=== PATIENT | female | born 1960 | race Caucasian/White ===

== ENCOUNTER 2018-08-24 09:08 | Outpatient (CLI) | payer OTHER, SELFPAY | END 2018-08-24 09:28 | PROVIDERS: PCP Family Medicine; Visit Provider Surgery | DX: R07.89 Other chest pain (principal); Z01.810 Encounter for preprocedural cardiovascular examination | CPT/HCPCS: 93005; 93010 ==

== ENCOUNTER 2018-09-04 06:17 | Day surgery (SDC) | payer OTHER, SELFPAY ==
[2018-08-24 09:28] VITALS: BP 128/75; PULSE 73; RESP 18; TEMP 36.7; O2SAT 97
[2018-09-04 06:38] VITALS: BP 127/82; PULSE 68; RESP 18; TEMP 36; O2SAT 96
--- NOTE | 2018-09-04 06:41 | W.PM.ENDDOP ---
Date of service: 09/04/18 Time of Service: 07:28 Endoscopy Report DATE OF PROCEDURE: 09/04/18 PRE-OP DIAGNOSIS: Dysphagia/ Hx of Jessica's/ Change in bowel habits POST-OP DIAGNOSIS: other (Gastritis, esophagitis, burr-diverticulosis) PROCEDURE: 1. EGD with biopsies 2. Colonoscopy SURGEON: Tess Batista ANESTHESIA: other (General/ ASA 3/Kathleen Quezada, NIB ADJUSTER) ESTIMATED BLOOD LOSS: 3 PATHOLOGY: other (Antrum bx, GE junction bx) COMPLICATIONS: None DISPOSITION: same day INDICATIONS: Mrs. Arora is a pleasant 57 year old female with new onset dysphagia, hx of Jessica's and changes in bowel habits who was seen in the office for an EGD and Colonoscopy. Risks, benefits and complications have been reviewed. Complications include but are not limited to bleeding, pain, perforation, missed small lesion/polyp, sore throat, aspiration and adverse reaction to the medications. Questions were entertained and answered to their satisfaction and they wished to proceed. No guarantees were given or implied. PREP: Miralax/Dulcolax PROCEDURE START TIME: 07:30 PROCEDURE END TIME: 08:17 COLONOSCOPY RETRACTION TIME: 12 minutes FINDINGS: Inflammation of the stomach and esophagus Burr-diverticulosis Difficult EGD/[place] due to patient morbid obesity and SANTY. PROCEDURE DESCRIPTION: After informed consent was obtained the patient was take to the procedure room and placed in a supine position. Monitors were applied and a time out was done. The patients name, date of , procedure type, allergies to medications and metal in their body was reviewed. A bite block was placed and the patient was sedated. Once sedated and comfortable the gastroscope was advanced through the oropharynx which was grossly normal into the esophagus. The proximal and mid-esophagus were normal. In the distal esophagus there was inflammation noted. The scope was advanced into the stomach and through the pylorus into the 3rd portion of the duodenum. The duodenum was noted to have mild inflammation in the duodenal bulb. The scope was retracted back into the stomach and biopsies were done to rule out H. pylori. There were no ulcers. The scope was retro-flexed. The cardia and fundus were noted to be normal. There was no hiatal hernia noted. The scope was retracted back into the esophagus and biopsies were done of the GE junction to rule out Jessica's. The Z line was irregular. The GE junction was at 38 cm. While the patient was still sedated they were placed in a left decubitous position. A rectal exam was done. External exam was normal. Internal exam revealed a normal sphincter tone and no palpable masses. The scope was then introduced and retro-flexed. No internal hemorrhoids were identified. There were no polyps and no masses in the rectum.The scope was then advanced to the cecum with a lot of difficulty due to the patients morbid obesity and hx of obstructive sleep apnea. Due to the patients size it was also difficult to advance the scope into the cecum. The TI and appendiceal orifice were identified. The prep was good. The scope was then slowly retracted over 12 minutes back into the rectum. Burr-diverticulosis was note. There were no polyps identified. The scope was removed and the patient was woken up and taken back to Same day surgery in stable condition. The patient tolerated the procedure well and there were no immediate complications. Follow up: 10 year for her next colonoscopy. Due to the difficulty with her airway I recommend that she [place] [facility] [place] [facility], unless she looses a lot of weight. This will be discussed with the patient as well. Follow up with her PCP in 2-3 weeks. I will call her with the results of her EGD and Colonoscopy. Will add Ranitidine 300 mg in the evening.
--- NOTE | 2018-09-04 06:46 | ENDO_ITS ---
Date of service: 09/04/18 Time of Service: 07:28 Endoscopy Report DATE OF PROCEDURE: 09/04/18 PRE-OP DIAGNOSIS: Dysphagia/ Hx of Jessica's/ Change in bowel habits POST-OP DIAGNOSIS: other (Gastritis, esophagitis, burr-diverticulosis) PROCEDURE: 1. EGD with biopsies 2. Colonoscopy SURGEON: Tess Batista ANESTHESIA: other (General/ ASA 3/Kathleen Quezada, STUDIO CAMERA OPERATOR) ESTIMATED BLOOD LOSS: 3 PATHOLOGY: other (Antrum bx, GE junction bx) COMPLICATIONS: None DISPOSITION: same day INDICATIONS: Mrs. Arora is a pleasant 57 year old female with new onset dysphagia, hx of Jessica's and changes in bowel habits who was seen in the office for an EGD and Colonoscopy. Risks, benefits and complications have been reviewed. Complications include but are not limited to bleeding, pain, perforation, missed small lesion/polyp, sore throat, aspiration and adverse reaction to the medications. Questions were entertained and answered to their satisfaction and they wished to proceed. No guarantees were given or implied. PREP: Miralax/Dulcolax PROCEDURE START TIME: 07:30 PROCEDURE END TIME: 08:17 COLONOSCOPY RETRACTION TIME: 12 minutes FINDINGS: Inflammation of the stomach and esophagus Burr-diverticulosis Difficult EGD/[place] due to patient morbid obesity and SANTY. PROCEDURE DESCRIPTION: After informed consent was obtained the patient was take to the procedure room and placed in a supine position. Monitors were applied and a time out was done. The patients name, date of , procedure type, allergies to medications and metal in their body was reviewed. A bite block was placed and the patient was sedated. Once sedated and comfortable the gastroscope was advanced through the oropharynx which was grossly normal into the esophagus. The proximal and mid- esophagus were normal. In the distal esophagus there was inflammation noted. The scope was advanced into the stomach and through the pylorus into the 3rd portion of the duodenum. The duodenum was noted to have mild inflammation in the duodenal bulb. The scope was retracted back into the stomach and biopsies were done to rule out H. pylori. There were no ulcers. The scope was retro- flexed. The cardia and fundus were noted to be normal. There was no hiatal hernia noted. The scope was retracted back into the esophagus and biopsies were done of the GE junction to rule out Jessica's. The Z line was irregular. The GE junction was at 38 cm. While the patient was still sedated they were placed in a left decubitous position. A rectal exam was done. External exam was normal. Internal exam revealed a normal sphincter tone and no palpable masses. The scope was then introduced and retro-flexed. No internal hemorrhoids were identified. There were no polyps and no masses in the rectum.The scope was then advanced to the cecum with a lot of difficulty due to the patients morbid obesity and hx of obstructive sleep apnea. Due to the patients size it was also difficult to advance the scope into the cecum. The TI and appendiceal orifice were identified. The prep was good. The scope was then slowly retracted over 12 minutes back into the rectum. Burr-diverticulosis was note. There were no polyps identified. The scope was removed and the patient was woken up and taken back to Same day surgery in stable condition. The patient tolerated the procedure well and there were no immediate complications. Follow up: 10 year for her next colonoscopy. Due to the difficulty with her airway I recommend that she [place] [facility] [place] [facility], unless she looses a lot of weight. This will be discussed with the patient as well. Follow up with her PCP in 2-3 weeks. I will call her with the results of her EGD and Colonoscopy. Will add Ranitidine 300 mg in the evening.
--- NOTE | 2018-09-04 06:46 | W.PM.DSUDISC ---
Discharge Plan Disposition Patient Disposition: HOME Condition: Good Discharge Details Reason For Visit: Colonoscopy and EGD Attending Provider: Tess Batista Primary Care Provider: Mario Alberto Rowland Home Meds and New Rx's Prescriptions: New ranitidine HCl 300 mg capsule 300 mg PO QHS Qty: 30 RF: 2 Continued [id number] [Nqzlgk-Zlnnd-SVO (with antiox)] 500-500-66.7 mg tablet 4 tab PO BID RF: 0 nystatin 100,000 unit/gram powder 1 applic TP TID Qty: 60 RF: 0 omeprazole 40 mg capsule,delayed release(DR/EC) 40 mg PO DAILY Qty: 30 RF: 0 mupirocin 2 % ointment 1 applic Topical BID 7 Days Qty: 22 RF: 1 montelukast [Singulair] 10 mg tablet 10 mg PO DAILY Qty: 90 RF: 3 epinephrine [EpiPen 2-Behzad] 0.3 mg/0.3 mL auto-injector 0.3 mg IM as directed Qty: 1 RF: 3 flu vacc quad 2018-19(6mos up) 60 mcg (15 mcg x 4)/0.5 mL suspension 0.5 ml IM ONCE Qty: 0.5 RF: 0 diphenhydramine HCl [Benadryl] 25 MG capsule 4 cap PO HS RF: 0 loratadine [Claritin] 10 MG tablet 1 tab PO BID Qty: 180 RF: 4 Co [id number]-35-[id number] E-Fish Oil 1 EACH capsule 3 ea PO BID RF: 0 acyclovir 400 mg tablet 400 mg PO TID PRN Qty: 30 RF: 1 Ascorbic Acid [Vitamin C] 500 MG capsule 500 mg PO DAILY RF: 0 vitamin B complex 1 EACH capsule 1 ea PO DAILY RF: 0 Discontinued polyethylene glycol 3350 17 gram powder in packet 255 g PO DAILY Qty: 15 RF: 0 bisacodyl [Dulcolax (bisacodyl)] 5 mg tablet,delayed release (DR/EC) 5 mg PO ONCE Qty: 4 RF: 0 Discharge Instructions Instructions: Colonoscopy (DC), Upper Endoscopy (DC), Diet for Stomach Ulcers and Gastritis (GEN), Gastritis (DC), Esophagitis (DC), Diverticulosis (DC) Additional Instructions: Findings: inflammation of the stomach and esophagus Diverticulosis Follow up: 10 years for your next colonoscopy F/U with PCP in 2-3 weeks Please call if you develop: fevers >101.5 Nausea or Vomiting Abdominal pain that is not transient DAY SURGERY UNIT POST COLONOSCOPY INSTRUCTIONS 1. Because there will be medication in your system for the next 24 hours, you may feel a little sleepy. Your coordination will be affected. Therefore: a. Do not drive or operate dangerous equipment for 24 hours. b. Do not drink alcohol beverages for 24 hours (not even beer). c. Plan to go home and rest for the day. 2. Generally there are no restrictions on your activity after a day or so has gone by, but you may feel a bit fatigued for a few days. 3 After you arrive home you may have a light meal and return to a normal diet as you can tolerate it without feeling sick to your stomach. 4. After surgery, you may feel pain or discomfort. This should be only transient, but if it persists please contact your doctor. 5. If there are any questions regarding the findings of your procedure, please feel free to contact your doctor. 6. If you are unable to contact your doctor with a problem, contact the hospital at [phone]. 7. Continue all your regular medications unless directed otherwise. I understand the above instructions and have no questions. Signature of Patient or Responsible Adult Escort Date/Time Name of Responsible Adult Escort Signature of Nurse Date/Time Referrals: Mario Alberto Rowland [Primary Care Provider] - (2-3 weeks) Activity:: Activity as Tolerated Diet:: low acid Discharge Orders Discharge Orders: Discharge Order (Routine); Ordered 09/04/18 Ordered By: Tess Batista DS: Diagnosis Discharge Diagnosis (1) S/P colonoscopy: Status: Acute (2) H/O esophagogastroduodenoscopy: Status: Chronic (3) Diverticulosis: Status: Acute (4) Gastritis: Status: Acute
[2018-09-04] MEDS: Lactated Ringers 1,000 ML 80 ML IV (06:58)
--- NOTE | 2018-09-04 07:30 | STOM_PTH ---
PATIENT: Demetra Arora LOC: [facility] U#:[id number] AGE/SX: 57/F ROOM: RE09/04/[address]: Tess Batista MD : 1960 BED: DIS: 09/04/2018 SPEC #: [id number] RECD: 09/04/18 12:49 STATUS: CATHY RE #: [id number] THIERNO: 09/04/18 07:[address]: Tess Batista DEPT: Surgical Specimen RECD BY: Iwona Mesa ENTERED: 09/04/18 12:51 SP TYPE: STOMACH OTHR DR: Mario Alberto Rowland MD Tissues: 1 - STOMACH BIOPSY 2 - ESOPHAGUS BIOPSY Procedures: GROSS AND MICRO LEVEL 4 Comments: [id number]
[2018-09-04 08:58] VITALS: BP 124/74; PULSE 59; RESP 18; TEMP 35.7; O2SAT 99
== END 2018-09-04 09:14 | disposition home or self-care (01) ==
PROVIDERS: PCP Family Medicine; Visit Provider Surgery
PROC: (CPT 43239; principal; 2018-09-04 07:30)
DX: K22.711 Barrett's esophagus with high grade dysplasia (principal); K31.89 Other diseases of stomach and duodenum; R13.10 Dysphagia, unspecified; R19.4 Change in bowel habit; K57.30 Diverticulosis of large intestine without perforation or abscess without bleeding; G47.33 Obstructive sleep apnea (adult) (pediatric)
CPT/HCPCS: 43239; 45378; 88305

== ENCOUNTER 2018-09-14 07:10 | Outpatient (CLI) | payer OTHER, SELFPAY ==
[2018-09-14 07:41] LABS: Abs Immature Grans 0.01 k/cumm (0.0-0.09); Absolute Basophil Count 0.03 k/cumm (0.0-0.2); Absolute Lymphocyte Count 1.21 k/cumm (1.2-3.4); Absolute Monocyte Count 0.51 k/cumm (0.11-0.7); Absolute Neutrophil Count 3.56 k/cumm (1.2-6.7); Basophils % 0.5; Eosinophils % 3.6; HCT 39.2 % (36.0-46.0); HGB 12.6 g/dL (12.0-15.5); Immature Grans % 0.2; Lymphocytes % 21.9; Mean Corp. HGB Concentration 32.1 g/dL (32.0-36.0); Mean Corpuscular Hemoglobin 29.7 pg (27.0-33.0); Mean Corpuscular Volume 92.5 fL (80-95); Mean Platelet Volume 10.6 fL (8.0-11.0); Monocytes % 9.2; Neutrophils % 64.6; Platelet Count 194 x1000/uL (130-400); RBC 4.24 m/cumm (4.00-5.20); RBC Distribution Width 13.6 % (11.7-14.6); White Blood Cell Count 5.52 k/cumm (4.4-10.8)
[2018-09-14 08:16] LABS: Hemoglobin A1C 5.6 % (4.5-6.2)
[2018-09-14 08:54] LABS: ALT 23 U/L (12-78); AST 14 U/L (15-37); Albumin 3.4 g/dL (3.4-5.0); Alkaline Phosphatase 88 U/L (46-116); Anion Gap 9.7 mmol/L (3-11); BUN 15 mg/dL (7-18); Bilirubin, Total 0.3 mg/dL (0.2-1.0); CO2 27.3 mmol/L (21.0-32.0); CREATININE 0.84 mg/dL (0.55-1.02); Calcium 9.3 mg/dL (8.5-10.1); Chloride 105 mmol/L (98-107); Cholesterol 193 mg/dL (50-200); Glucose 95 mg/dL (70-100); HDL Cholesterol 61 mg/dL (40-60); LDL CHOLESTEROL 106 mg/dL (<100); Potassium 4.2 mmol/L (3.5-5.1); Sodium 142 mmol/L (136-145); TSH (W/Ref FT4) 5.41 uIU/mL (0.358-3.74); Total Protein 6.7 g/dL (6.4-8.2); Triglyceride 139 mg/dL (30-150)
== END 2018-09-14 07:30 ==
PROVIDERS: PCP Family Medicine; Visit Provider Family Medicine
DX: Z00.00 Encounter for general adult medical examination without abnormal findings (principal); R00.2 Palpitations; K29.70 Gastritis, unspecified, without bleeding; R73.9 Hyperglycemia, unspecified
CPT/HCPCS: 36415; 80053; 80061; 83721; 85027; 83036; 84439; 84443; 85025

== ENCOUNTER 2019-06-11 14:33 | Outpatient (REF) | payer OTHER, SELFPAY ==
--- NOTE | 2019-06-11 10:00 | PAPFT_PTH ---
PATIENT: Demetra Arora LOC: [facility] U#:[id number] AGE/SX: 58/F ROOM: RE06/11/[address]: Mario Alberto Rowland MD : 1960 BED: DIS: 06/11/2019 SPEC #: [id number] RECD: 06/11/19 17:45 STATUS: CATHY RENik #: [id number] THIERNO: 06/11/19 10:[address]: Mario Alberto Rowland DEPT: [facility] Cytology RECD BY: Iwona Mesa Tissues: 1 - CX/ENDOCX FOR PAP SMEARS Procedures: PAP THIN PREP/[facility] Screening Comments: [id number] (ZAN/MARCELA)
[2019-06-12 15:45] LABS: Chlamydia Result Negative (Negative); GC Result Negative (Negative)
== END 2019-06-11 14:53 ==
LOC: LBN 14:33
PROVIDERS: PCP Family Medicine; Visit Provider Family Medicine
DX: Z12.4 Encounter for screening for malignant neoplasm of cervix (principal); Z11.3 Encounter for screening for infections with a predominantly sexual mode of transmission
CPT/HCPCS: 87491; 87591; 88142

== ENCOUNTER 2019-07-10 01:28 | Outpatient (CLI) | payer OTHER, SELFPAY ==
--- NOTE | 2019-07-10 07:28 | DI.MAMMO_ITS ---
EXAM: MG MAMMO SCREENING CLINICAL HISTORY: SCREENING, Z12.31. TECHNIQUE: Bilateral full field digital CC and MLO mammographic images were obtained with 3D tomosyn thesis and utilizing computer aided detection (CAD). COMPARISON: Available for comparison. FINDINGS: Masses/Architectural Distortion: None seen. Microcalcifications: No suspicious pleomorphic-type are seen. Skin Thickening/Nipple Retraction: None. IMPRESSION: 1. No significant interval change with no specific features of malignancy noted. 2. Unless there is more urgent need, screening mammography is recommended, as per [employer] guidelines. ACR BI-RAD Category- 1 Negative Breast Density - Category B - Scattered areas of fibroglandular density A negative radiographic report should not delay biopsy if a dominant or clinically suspicious mass is present. Up to ten percent of cancers are not identified on mammography. A negative report may reinforce clinical impression. Adenosis and dense breasts may obscure an underlying neoplasm. False positive reports average 6 to 10%. Patient will receive a letter notifying them of these results.
[2019-07-10 08:51] LABS: Anion Gap 9.7 mmol/L (3-11); BUN 27 mg/dL (7-18); CO2 28.3 mmol/L (21.0-32.0); CREATININE 0.76 mg/dL (0.55-1.02); Calcium 9.2 mg/dL (8.5-10.1); Chloride 103 mmol/L (98-107); Glucose 99 mg/dL (74-106); Potassium 4.3 mmol/L (3.5-5.1); Sodium 141 mmol/L (136-145)
[2019-07-10 09:44] LABS: FREE T4 1.03 ng/dL (0.76-1.46)
== END 2019-07-10 01:48 ==
PROVIDERS: PCP Family Medicine; Visit Provider Family Medicine
DX: Z00.00 Encounter for general adult medical examination without abnormal findings (principal); Z12.31 Encounter for screening mammogram for malignant neoplasm of breast; R79.89 Other specified abnormal findings of blood chemistry
CPT/HCPCS: 36415; 77063; 77067; 80048; 84439; 84443

== ENCOUNTER 2020-10-07 20:51 | Emergency (ER) | payer OTHER, SELFPAY ==
[2020-10-07] VITALS (12 sets, daily range): BP systolic 127–145; BP diastolic 71–93; PULSE 71–80; RESP 12–30; TEMP 36.3; O2SAT 96–100
--- NOTE | 2020-10-07 20:45 | RT.EKG_ITS ---
APPROVED REPORT Exam: Resting ECG Reason for Exam: ?heart attack Patient Location: E HR:75 bpm ECG Measurements Heart Rate 75 AXIS VT 171 P 21 QRSd 85 QRS -2 QT 395 T 40 QTc 443 Conclusion Sinus rhythm...normal P axis, V-rate 60- 99
--- NOTE | 2020-10-07 21:00 | DI.CT_ITS ---
Exam(s) CT THORAX CTA EXAM: CT THORAX CTA CLINICAL HISTORY: left sided pain radiating to the back. TECHNIQUE: Imaging Protocol: Axial CT angiography was performed with multi-slice acquisition and mu lti-planar and/or 3D reconstructions. CONTRAST MATERIAL: Intravenous: Omnipaque 350 Contrast volume:100 mL COMPARISON: No exams were available for comparison FINDINGS: Tracheobronchial tree: Patent where visualized. Pulmonary parenchyma: No consolidation or dominant measurable mass. There is atelectasis/scarring in the right lung base adjacent to the hiatal hernia. Pulmonary Arteries: No evidence of filling defect to suggest pulmonary emboli. Mediastinum and Taty: No dominant adenopathy or fluid collection. There is a large hiatal hernia. The re also appears to be a large component of the transverse colon within the herniation. Visualized thyroid gland: Unremarkable. Pleura: No effusion or pneumothorax. Heart: The heart is not dilated. No coronary artery calcifications are seen. No pericardial effusion. Aorta: Thoracic aorta non-dilated. No evidence of dissection. Upper abdomen: Please see the above discussion in the mediastinum and taty. There is a simple splen ic cyst present. No follow-up is recommended. Soft tissues: Unremarkable. Bones: Within normal limits for the patient's age. IMPRESSION: 1. No evidence of pulmonary embolism, thoracic aortic dissection or aneurysm. 2. Large hiatal hernia containing a stomach and portion of the transverse colon. No evidence of obstr uction or strangulation. 3. Compressive atelectasis or scarring in the right lower lobe adjacent to the hiatal hernia. RADIATION DOSE DELIVERED: 633.9mGy.cm Total DLP 633.9mGy.cm Total DLP DATA REPOSITORY: All CT scans at this facility are submitted to the National Radiology Data Registry (NRDR) Dose Index Registry (DIR) with the [employer] (A[employer]). RADIATION OPTIMIZATION: All CT scans at this facility use at least one of these dose optimization te chniques: automated exposure control; mA and/or kV adjustment per patient size (includes targeted exa ms where dose is matched to clinical indication); or iterative reconstruction.
--- NOTE | 2020-10-07 21:00 | ED.GENADUL_ITS ---
Discharge Plan Disposition Patient Disposition: AGAINST MEDICAL ADVICE Condition: Stable Discharge Details Clinical Impression: Arm pain, left, Pain, upper back Primary Care Provider: Mario Alberto Rowland ED Provider: Santiago Ang Home Meds and New Rx's Prescriptions: Continued mupirocin 2 % ointment 1 applic Topical BID 7 Days Qty: 22 RF: 1 epinephrine [EpiPen 2-Behzad] 0.3 mg/0.3 mL auto-injector 0.3 mg IM as directed Qty: 1 RF: 3 multivitamin with iron [Daily Multiple Vitamins/Iron] tablet 1 tab PO DAILY RF: 0 [id number] [Gepwxn-Tzjsy-KMN (with antiox)] 500-500-66.7 mg tablet 4 tab PO BID RF: 0 diphenhydramine HCl [Benadryl] 25 MG capsule 4 cap PO HS RF: 0 loratadine [Claritin] 10 MG tablet 1 tab PO BID Qty: 180 RF: 4 omeprazole 40 mg capsule,delayed release(DR/EC) 40 mg PO DAILY Qty: 30 RF: 0 acyclovir 400 mg tablet 400 mg PO TID PRN Qty: 30 RF: 1 nystatin 100,000 unit/gram powder 1 applic TP TID PRNRF: 0 Discharge Instructions Additional Instructions: Your imaging and lab work did not show any concerning findings you should follow up with your primary care provider within 1 week if you feel more ill, have difficulty breathing, fevers, or severe worsening pain return to the emergency department Medical Decision Making 59 yo female with hx of svt, ben, who comes in with primarily left arm pain. 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 Today she noted pain in her left hand that felt like a spasm. She states tonight aroud 5pm her pain moved up the left arm to the shoulder and upper back. Denies any falls, no chest pain, no dyspnea, no fever, no cough. Denies weakness or numbness. No headache or vision changes. She arrives with normal gait speaking clearly, caox4, eomi, CN II-XII intact, no focal motor or sensation deficits. She has normal pulses in the arms. Normal sensation and full range of motion of the arms. HAs pain with palpation to the mid hand without palpable or visible deformity. I suspect this is pain from overuse and the lifting vs arthritis, will obtain xray of the hand. Given the upper shoulder and posterior back pain earlier, though likely also related to the lifting, feel workup to evaluate for nstemi vs dissection indicated. She has no hypoxia or evidence of dvt on exam so doubt PE. pt remains stable, still only has pain in the hand, no chest pain. Will continue to monitor. LABs unremarkable and imaging on my read is unremarkable imaging shows no acute findings, has arthritis in the hand and hiatal hernia that she already knows of, she remains stable. I recommended waiting to obtain delta troponin and ecg. Patient has capacity to make her own decisions and is declining to stay for this. She understands risks of missing an nstemi including and permanent disability and she is willing to accept these risks and is leaving against my medical advice. She understands she can return at any time if she changes her mind and she needs to follow up with her pcp Differential Diagnosis Differential Diagnosis: strain, dissection, nstemi, arthritis Medical Records Medical records reviewed: Yes I reviewed the patient's medical records. Imaging Data Radiologic Study: Attestation: I personally reviewed and interpreted this imaging study as follows: Imaging: X-Ray My impression: no acute findings Radiologic Study #2: Attestation: I personally reviewed and interpreted this imaging study as follows: Imaging: CT Scan My impression: no acute findings on cat scan Radiologist's impression: IMPRESSION: 1. No evidence of pulmonary embolism or aortic dissection. 2. Large hiatal hernia containing the stomach and a portion of the transverse colon. Herniated stomach is moderately fluid distended, however there is fluid and gas present in the duodenum distally without evidence of high-grade obstruction or strangulation. No evidence of colonic obstruction or strangulation. 3. Moderate compressive atelectasis in the right lower lobe adjacent to the hiatal hernia. 4. Additional non-emergent findings detailed above Lab Data Lab results reviewed: Yes I reviewed the patient's lab results. ECG Data Attestation: I personally reviewed and interpreted this ECG (s) as follows: Prior ECG tracings: not available for review Interpretation: sinus rhythm, rate of 75, pr 171, qtc [address] t wave i schemic findings HPI General Mode of arrival: ambulatory . Date/Time Provider Initiated Documentation: 10/07/20 20:51 . Limitations to Documentation: no limitations . Information obtained by: patient . History of Present Illness 59 year old F presents to the emergency department with the chief complaint of arm pain, described as moderate, Patient started experiencing this day(s) (1) and it has been constant. No relieving factors improve symptom(s), No exacerbating factors reported . Patient did receive the following treatments prior to arrival, none Related Data Home Medications Medication Instructions Recorded Confirmed diphenhydramine HCl [Benadryl] 4 cap PO HS 09/28/12 10/07/20 loratadine [Claritin] 1 tab PO BID #180 09/28/12 10/07/20 [id number] 4 tab PO BID tab 02/27/18 10/07/20 149-hyalur 500 mg-500 mg-66.7 mg tablet multivitamin with iron 1 tab PO DAILY 09/13/18 10/07/20 epinephrine 0.3 mg/0.3 mL 0.3 mg IM as directed #1 pen 06/11/19 10/07/20 injection, auto-injector mupirocin 2 % topical ointment 1 applic TOPICAL BID 7 Days #22 gm 06/11/19 10/07/20 omeprazole 40 mg capsule,delayed 40 mg PO DAILY #30 cap 06/12/20 10/07/20 release acyclovir 400 mg tablet 400 mg PO TID PRN #30 tab 07/24/20 10/07/20 nystatin 1 applic TP TID PRN 10/07/20 10/07/20 Previous Rx's Medication Instructions Recorded epinephrine 0.3 mg/0.3 mL 0.3 mg IM as directed #1 pen 06/11/19 injection, auto-injector mupirocin 2 % topical ointment 1 applic TOPICAL BID 7 Days #22 gm 06/11/19 omeprazole 40 mg capsule,delayed 40 mg PO DAILY #30 cap 06/12/20 release acyclovir 400 mg tablet 400 mg PO TID PRN #30 tab 07/24/20 Allergies Allergy/AdvReac Type Severity Reaction Status Date / Time NSAIDS (Non-Steroidal Allergy Severe ANAPHYLAXSI Verified 10/07/20 21:01 Anti-Inflamma S sulfite Allergy Severe ANAPHYLAXSI Verified 10/07/20 21:02 S codeine AdvReac Intermediate NAUSEA Verified 10/07/20 21:01 lactose AdvReac Intermediate REGURG Verified 10/07/20 21:01 oxycodone AdvReac Intermediate NAUSEA/VOMI Verified 10/07/20 21:01 TING PRESERVATIVES Allergy Severe ANAPHYLAXSI Uncoded 10/07/20 21:01 S General Stated Complaint: GenMedical HORTENSIA: 3 Review of Systems All systems reviewed & are unremarkable except as noted in HPI and below Constitutional Constitutional: Denies chills, Denies fever(s) and Denies weakness Cardiovascular Cardiovascular: Denies chest pain and Denies dyspnea Respiratory Respiratory: Denies cough and Denies dyspnea Gastrointestinal Gastrointestinal: Denies abdominal pain, Denies nausea and Denies vomiting Musculoskeletal Musculoskeletal: Denies joint swelling Neurologic Neurologic: Denies weakness [facility] Medical History (Updated 10/07/20 @ 23:10 by Santiago Ang MD) Depressive disorder Dermatitis due to unknown cause (07/07/15) [place]verticulosis DJ[place]degenerative joint disease) [place]/11[place] [facility] [place] [facility] [place] (XRAY BOTH KNEES PRIOR) Ear congestion Folliculitis (12/27/17) Gastritis (~09/04/18) Gastroesophageal reflux disease with esophagitis 12/11 EGD: CA GRADE B REFLUX ESOPHAGITIS 01/15 egd cintia. barretts no longer present Insomnia Low back pain In 2006 she [place] a spinal lamine[place] [facility] [place] Menstrual irregularity (12/14/17) Obesity Obstructive sleep apnea syndrome 03/14 SLEEP STUDY @ [facility]: MODERATELY SEVERE OBSTRUCTIVE SLEEP APNEA; CPAP RECOMMENDED. 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 Replacement of total knee joint (~09/2009) B/L Rotator Cuff Repair (01/17/12) RIGHT S/P colonoscopy (~09/04/18) Family History Mother , AGE 63 Diabetes Heart disease Stroke Uterine cancer Father , AGE 72 No problems noted. Sister Diabetes Sister Epilepsy Maternal Grandmother Diabetes Cancer Son No problems noted. Social History Smoking/Tobacco Use Status: Former Tobacco Use Quit Date: 06/06/00 Smoking risk assessment performed?: Yes Alcohol Intake: current Alcohol Intake frequency: a few times a week Drug use: Never Substance use type: does not use and other Details: USES CBD OIL AND CREAM 05/23 Duration: decline to answer Frequency: daily Romi/Moravian: No preference Special romi needs: No Do you feel safe at home: Yes Exam Const General: no acute distress Orientation: alert HENMT Head: normal to inspection Ears: external ears normal General nose exam: external nose normal Mouth: moist mucous membranes Eyes General: appearance normal, both eyes and all related structures Neck Neck: normal visual inspection Resp Effort & Inspection: normal respiratory effort and able to speak in complete sentences Cardio Rate: regular rate GI Palpation: soft and nontender Skin General skin exam: no rashes or lesions noted Neuro General: patient alert and patient oriented x3 Extrem General: normal to inspection Psych Mental Status: mental status grossly normal Course Vital Signs Vital signs: Vital Signs Temperature 36.3 C L 10/07/20 20:57 Pulse 76 10/07/20 20:57 Respiratory Rate 12 10/07/20 20:57 Pulse Oximetry 97 10/07/20 20:57 Temperature 36.3 C L 10/07/20 20:57 Temperature Source Skin 10/07/20 20:57 Pulse 76 10/07/20 20:57 Respiratory Rate 12 10/07/20 20:57 Blood Pressure Position Supine 10/07/20 20:57 Pulse Oximetry 97 10/07/20 20:57 Oxygen Delivery Method Room Air 10/07/20 20:57 Oxygen Flow Rate 0 10/07/20 20:57 Pain Level 5 10/07/20 20:57
--- NOTE | 2020-10-07 21:00 | DI.RAD_ITS ---
Exam(s) XR HAND LT COMPLETE EXAM: XR HAND LT COMPLETE CLINICAL HISTORY: pain. TECHNIQUE: 2D digital imaging was performed. COMPARISON: No exams were available for comparison FINDINGS: BONES: No acute fracture is present. No bony destructive lesion is seen. JOINTS: No dislocation present. There is osteoarthritis of the hand. The arthritic findings are clarissa ed at the 1st CMC joint. SOFT TISSUE: Normal. IMPRESSION: 1. No acute fracture or dislocation. 2. Marked osteoarthritis of the 1st CMC joint. DATA REPOSITORY: RADIATION DOSE DELIVERED:
[2020-10-07] MEDS: Acetaminophen 500 MG TAB 1000 MG PO (21:14)
[2020-10-07 21:17] LABS: Abs Immature Grans 0.06 10^3/uL (0.0-0.06); Absolute Basophil Count 0.04 10^3/uL (0.0-0.2); Absolute Lymphocyte Count 1.21 10^3/uL (1.2-3.4); Absolute Monocyte Count 0.66 10^3/uL (0.1-0.8); Absolute Neutrophil Count 6.32 10^3/uL (1.2-6.7); Basophils % 0.5; Eosinophils % 2.4; HCT 42.2 % (36.0-46.0); HGB 14.4 g/dL (11.2-15.7); Immature Grans % 0.7; Lymphocytes % 14.3; MCH 31.6 pg (27.0-33.0); MCHC 34.1 % (32.0-36.0); MCV 92.5 fL (80-95); MPV 10.5 fL (8.0-11.0); Monocytes % 7.8; Neutrophils % 74.3; Nucleated RBC 0 %; Platelet Count 242 10^3/uL (130-400); RBC 4.56 10^6/uL (3.93-5.22); RDW 12.6 % (11.7-14.6); RDW-SD 42.8 fL; WBC 8.49 10^3/uL (4.4-10.8)
[2020-10-07] MEDS: Omnipaque 350 MG/ML 100 ML BTL IJ (21:33)
[2020-10-07] MEDS: Normal Saline - Diluent 50 ML VIAL IV (21:34)
[2020-10-07 21:35] LABS: ALT 29 U/L (14-59); AST 16 U/L (15-37); Albumin 3.7 g/dL (3.4-5.0); Alkaline Phosphatase 101 U/L (46-116); Anion Gap 8.5 mmol/L (3-11); BUN 15 mg/dL (7-18); Bilirubin, Direct 0.1 mg/dL (0.0-0.2); Bilirubin, Total 0.4 mg/dL (0.2-1.0); CO2 28.5 mmol/L (21.0-32.0); Calcium 9.6 mg/dL (8.5-10.1); Chloride 106 mmol/L (98-107); Estimated GFR 57.15 (mL/min/1.73m2); Glucose 103 mg/dL (74-106); Lipase 51 U/L (73-393); Magnesium 1.9 mg/dL (1.8-2.4); Potassium 3.9 mmol/L (3.5-5.1); Sodium 143 mmol/L (136-145); Total Protein 7.3 g/dL (6.4-8.2)
[2020-10-07 21:36] LABS: Troponin I < 0.05 ng/mL (<0.06)
[2020-10-07 21:39] LABS: PTT Activated 22.7 sec (21.0-27.5); Prothrombin Time 10.1 sec (9.3-11.0)
--- NOTE | 2020-10-07 22:26 | DI.VRAD_ITS ---
PROCEDURE INFORMATION: Exam: CTA Chest With Contrast Exam date and time: 10/07/2020 9:12 PM Age: 59 years old Clinical indication: Left-sided chest pain; Patient HX: L sided pain radiating to the back TECHNIQUE: Imaging protocol: Computed tomographic angiography of the chest with contrast. 3D rendering (Not supervised by radiologist): MIP and/or 3D reconstructed images were created by the technologist. Total images: 1620 COMPARISON: No relevant prior studies available. FINDINGS: Pulmonary arteries: The pulmonary arteries enhance appropriately with no evidence of pulmonary embolism. Aorta: The aorta enhances appropriately without evidence of dissection or aneurysm. No mediastinal hematoma. Moderate aortic tortuosity. Thyroid: The visualized thyroid gland demonstrates no gross abnormality. Lungs: No acute tracheobronchial abnormalities. No gross pulmonary infiltrates or edema pattern. Compressive atelectasis in the right lower lobe adjacent to the large hiatal hernia. No pulmonary mass lesions are identified. Pleural spaces: No pleural effusion. No pneumothorax. Heart: Heart size normal. No pericardial effusion. Lymph nodes: No supraclavicular or axillary adenopathy. No mediastinal or hilar adenopathy. Spleen: 18 mm simple appearing cyst in the inferior spleen measuring 3 Hounsfield units. This does not require further evaluation. Stomach and bowel: There is a large hiatal hernia present which contains the entire stomach and a portion of the transverse colon as well as a moderate amount of herniated omental and mesenteric fat. The herniated stomach demonstrates moderate distention with fluid and gas but does not appear grossly obstructed, with gas and air content in the duodenum. Bones/joints: No acute osseous abnormalities are identified. Soft tissues: The soft tissues of the chest wall demonstrate no acute abnormality. IMPRESSION: 1. No evidence of pulmonary embolism or aortic dissection. 2. Large hiatal hernia containing the stomach and a portion of the transverse colon. Herniated stomach is moderately fluid distended, however there is fluid and gas present in the duodenum distally without evidence of high-grade obstruction or strangulation. No evidence of colonic obstruction or strangulation. 3. Moderate compressive atelectasis in the right lower lobe adjacent to the hiatal hernia. 4. Additional non-emergent findings detailed above. Dictated and Authenticated by: Maverick Sherman MD. Ordering:PASCUAL Henderson MD
--- NOTE | 2020-10-07 22:28 | DI.VRAD_ITS ---
PROCEDURE INFORMATION: Exam: XR Left Hand Exam date and time: 10/07/2020 9:49 PM Age: 59 years old Clinical indication: Other: Pain TECHNIQUE: Imaging protocol: XR Left hand. Views: 3 or more views. Total images: 3 COMPARISON: No relevant prior studies available. FINDINGS: Bones/joints: No fracture. Moderate interphalangeal osteoarthritic changes in the 2nd and 3rd finger DIP joints. Lesser interphalangeal osteoarthritic changes elsewhere. There is severe joint space narrowing, subarticular sclerosis, and marginal spurring at the first CMC joint. Soft tissues: No gross soft tissue abnormalities. IMPRESSION: 1. Severe osteoarthritic changes in the 1st CMC joint. Interphalangeal osteoarthritic changes are also present which are moderate in the DIP joints of the 2nd and 3rd fingers. 2. No fracture or dislocation. Dictated and Authenticated by: Maverick Sherman MD. Ordering:PASCUAL Henderson MD
== END 2020-10-07 22:43 | disposition left against medical advice (07) ==
PROVIDERS: Emergency Provider Emergency Medicine; PCP Family Medicine
DX: M79.602 Pain in left arm (principal); M54.89 Other dorsalgia; Z53.29 Procedure and treatment not carried out because of patient's decision for other reasons
CPT/HCPCS: 71275; 80053; 83690; 93005; 99285; 73130; 82248; 83735; 84484; 85025; 85610; 85730; 93010; 99283; J3490

== ENCOUNTER 2021-11-13 19:39 | Emergency (ER) | payer OTHER, SELFPAY ==
[2021-11-13 20:05] VITALS: BP 136/79; PULSE 74; RESP 16; TEMP 37.2; O2SAT 96
--- NOTE | 2021-11-13 20:30 | DI.CT_ITS ---
Exam(s) CT ABDOMEN PELVIS WO EXAM: CT ABDOMEN PELVIS WO CLINICAL HISTORY: LLQ to anus pain, hx of divirticulitis. TECHNIQUE: Imaging Protocol: Axial computed tomography images with coronal and sagittal reformatted images were created and reviewed. Oral: Yes COMPARISON: CT CT THORAX CTA from 10/07/2020 FINDINGS: There is a large hiatal hernia containing stomach and a portion of the transverse colon. No evidence of obstruction. Adjacent atelectasis. The liver,, gallbladder,, kidneys and adrenals are unremarkable. There is a stable cyst at the lower border of the spleen. The bladder uterus and ovaries are unremarkable. There is diverticulosis of the sigmoid. There is an area stranding in the fat as well as a small adjacent fluid collection or a bscess at the distal sigmoid. No definite perforation. No free fluid. There is a small fatty conta ining umbilical hernia. There is a spinal stimulator device. Degenerative changes are noted in the lower lumbar spine. The uterus, ovaries and bladder are unremarkable. IMPRESSION: findings consistent with acute diverticulitis. There is a question versus of of a small adjacent absc ess versus fluid collection. Stable appearance of large right-sided hiatal hernia containing a portion of transverse colon as well as stomach. RADIATION DOSE DELIVERED: 1,139.31mGy.cm Total DLP DATA REPOSITORY: All CT scans at this facility are submitted to the National Radiology Data Registry (NRDR) Dose Index Registry (DIR) with the [employer] (A[employer]). RADIATION OPTIMIZATION: All CT scans at this facility use at least one of these dose optimization te chniques: automated exposure control; mA and/or kV adjustment per patient size (includes targeted exa ms where dose is matched to clinical indication); or iterative reconstruction.
[2021-11-13 20:58] LABS: Abs Immature Grans 0.02 10^3/uL (0.0-0.06); Absolute Basophil Count 0.05 10^3/uL (0.0-0.2); Absolute Eosinophil Count 0.18 10^3/uL (0.0-0.7); Absolute Lymphocyte Count 1.42 10^3/uL (1.2-3.4); Absolute Monocyte Count 0.49 10^3/uL (0.1-0.8); Absolute Neutrophil Count 5.06 10^3/uL (1.2-6.7); Basophils % 0.7; Eosinophils % 2.5; HCT 43.5 % (36.0-46.0); HGB 14.2 g/dL (11.2-15.7); Immature Grans % 0.3; Lymphocytes % 19.7; MCH 30.3 pg (27.0-33.0); MCHC 32.6 % (32.0-36.0); MCV 93 fL (80-95); MPV 10.9 fL (8.0-11.0); Monocytes % 6.8; Platelet Count 195 10^3/uL (130-400); RBC 4.68 10^6/uL (3.93-5.22); RDW-SD 44.2 fL; WBC 7.22 10^3/uL (4.4-10.8)
[2021-11-13 20:59] LABS: Bilirubin Negative (Negative); Blood Negative (Negative); Clarity Clear (Clear); Glucose Negative (Negative); Ketones Negative (Negative); Leukocyte Esterase Negative (Negative); Nitrite Negative (Negative); Specific Gravity >= 1.030 (1.005-1.025); Urobilinogen 0.2 EU/dL (Up TO 0.2); pH 5.5 (5-8)
[2021-11-13 21:10] LABS: ALT 26 U/L (14-59); AST 17 U/L (15-37); Albumin 3.4 g/dL (3.4-5.0); Alkaline Phosphatase 119 U/L (46-116); Anion Gap 9.2 mmol/L (3-11); BUN 23 mg/dL (7-18); Bilirubin, Total 0.3 mg/dL (0.2-1.0); CO2 26.8 mmol/L (21.0-32.0); CREATININE 1.1 mg/dL (0.55-1.02); Calcium 9.4 mg/dL (8.5-10.1); Chloride 105 mmol/L (98-107); Estimated GFR 51.02 (mL/min/1.73m2); Glucose 105 mg/dL (74-106); Magnesium 2.2 mg/dL (1.8-2.4); Potassium 3.8 mmol/L (3.5-5.1); Sodium 141 mmol/L (136-145); Total Protein 7.4 g/dL (6.4-8.2)
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
--- NOTE | 2021-11-13 23:58 | DI.VRAD_ITS ---
Addendum created by Leanna Howard MD on 11/14/2021 12:01:43 AM EDT: THIS REPORT CONTAINS FINDINGS THAT MAY BE CRITICAL TO PATIENT CARE. The findings were verbally communicated via telephone conference with Dr. Call at 12:01 AM EDT on 11/14/2021. The findings were acknowledged and understood. Initial report created on 11/13/2021 11:58:25 PM EDT: PROCEDURE INFORMATION: Exam: CT Abdomen And Pelvis Without Contrast Exam date and time: 11/13/2021 11:14 PM Age: 60 years old Clinical indication: Other: Llq to anus pain, HX of diverticulitis TECHNIQUE: Imaging protocol: Computed tomography of the abdomen and pelvis without contrast. COMPARISON: SC ABD PELVIS TRANSVAG 12/15/2017 8:[address] scan of the chest, 10/07/2020. FINDINGS: Heart: There is a small pericardial effusion. Diaphragm: There is a large hiatal hernia, the superior portion of which is incompletely imaged. This hernia contains a portion of the stomach and large bowel. There are adjacent right lower lung opacities that could represent atelectasis. Infection not excluded. Liver: Normal. No mass. Gallbladder and bile ducts: Normal. No calcified stones. No ductal dilation. Pancreas: Normal. No ductal dilation. Spleen: There is a cystic structure in the inferior spleen. No splenomegaly. Adrenal glands: There is calcification in the right adrenal gland which can be seen secondary to old infection or trauma. Kidneys and ureters: Normal. No hydronephrosis. Stomach and bowel: Colonic diverticulosis is seen. There is some stranding adjacent to diverticular disease in the sigmoid colon. This is worrisome for/most consistent with acute diverticulitis. Series 3, image 70 demonstrates a 3 cm localized collection of zandra- diverticular fluid. Abscess/developing abscess is not excluded. There is a locule of adjacent gas on series 5, image 607 which is favored to be within a subtle diverticulum. Small focal perforation is not entirely excluded. There is also wall thickening for involving the ascending/proximal transverse colon for which an additional region of colitis/diverticulitis is not excluded. Appendix: No evidence of appendicitis. Intraperitoneal space: See above. Vasculature: Mild vascular calcifications. Lymph nodes: Unremarkable. No enlarged lymph nodes. Urinary bladder: Unremarkable as visualized. Reproductive: Unremarkable as visualized. Bones/joints: Skeletal degenerative changes.. No acute fracture. Disc space narrowing at L4-L5 and L5-S1. There is anterolisthesis of L4 on L5 and retrolisthesis of L5 on S1. Probable vacuum phenomenon is identified at L5-S1. An electronic device is noted in the posterior soft tissues which may represent a stimulator. Clinical correlation suggested. Soft tissues: There is a small umbilical hernia containing fat. IMPRESSION: 1.There is some stranding adjacent to diverticular disease in the sigmoid colon. This is worrisome for/most consistent with acute diverticulitis, given history. Series 3, image 70 demonstrates a 3 cm localized collection of zandra- diverticular fluid. Abscess/developing abscess is not excluded. There is a small locule of adjacent gas which is favored to be within a subtle diverticulum. Small focal perforation is not entirely excluded. 2. There is also wall thickening for involving the ascending/proximal transverse colon for which an additional region of colitis/diverticulitis is possible. 3. Small pericardial effusion. 4. Large hiatal hernia as described. There are adjacent right lower lung opacities that could represent atelectasis or infection. Other findings/details as above. Dictated and Authenticated by: Leanna Howard MD. Ordering:MIC Valladares MD
--- NOTE | 2021-11-14 00:02 | ED.PROG_ITS ---
Date of service: 11/14/21 Time of Service: 00:02 Medical Decision Making Care signed out by MICHAEL Poe. Please see his documentation regarding initial ED presentation course. Briefly patient sent from [facility] for [facility] imaging to assess for diverticulitis. Patient has a history of diverticulitis. Patient is well-appearing, benign abdominal exam other than some focal left lower quadrant abdominal pain. Labs unremarkable including no leukocytosis. CT abdomen pelvis was interpreted by radiology: Diverticulitis with adjacent stranding and microperforation. Patient also has another area of ascending colon concerning for colitis versus additional diverticulitis. Small pericardial effusion. Hiatal hernia that incompletely visualized. Plan to initiate treatment with Augmentin and have the patient follow-up with her PCP. All results were discussed with the patient. We discussed expected course and she was encouraged to return immediately should she have any worsening or new concerning symptoms. Lab Data Lab results reviewed: Yes I reviewed the patient's lab results. Labs: Laboratory Tests Range/Units 11/13/21 11/13/21 11/13/21 20:50 20:50 20:50 WBC (4.4-10.8) 10^3/uL 7.22 RBC (3.93-5.22) 10^6/uL 4.68 Hgb (11.2-15.7) g/dL 14.2 Hct (36.0-46.0) % 43.5 MCV (80-95) fL 93 MCH (27.0-33.0) pg 30.3 MCHC (32.0-36.0) % 32.6 RDW (11.7-14.6) % 13.0 Plt Count (130-400) 10^3/uL 195 MPV (8.0-11.0) fL 10.9 Immature Gran % 0.3 Neutrophils % 70.0 Lymphocytes % 19.7 Monocytes % 6.8 Eosinophils % 2.5 Basophils % 0.7 Nucleated RBC % (0.0-0.3) % 0.0 Absolute Neutrophils (1.2-6.7) 10^3/uL 5.06 Absolute Lymphocytes (1.2-3.4) 10^3/uL 1.42 Absolute Monocytes (0.1-0.8) 10^3/uL 0.49 Absolute Eosinophils (0.0-0.7) 10^3/uL 0.18 Absolute Basophils (0.0-0.2) 10^3/uL 0.05 Sodium (136-145) mmol/L 141 Potassium (3.5-5.1) mmol/L 3.8 Chloride (98-107) mmol/L 105 Carbon Dioxide (21.0-32.0) mmol/L 26.8 Anion Gap (3-11) mmol/L 9.2 BUN (7-18) mg/dL 23 H Creatinine (0.55-1.02) mg/dL 1.1 H Estimated GFR/1.73 m2 (mL/min/1.73m2) 51.02 Glucose (74-106) mg/dL 105 Calcium (8.5-10.1) mg/dL 9.4 Magnesium (1.8-2.4) mg/dL 2.2 Total Bilirubin (0.2-1.0) mg/dL 0.3 AST (15-37) U/L 17 ALT (14-59) U/L 26 Alkaline Phosphatase (46-116) U/L 119 H Total Protein (6.4-8.2) g/dL 7.4 Albumin (3.4-5.0) g/dL 3.4 Urine Color (Yellow) Yellow Urine Clarity (Clear) Clear Urine pH (5-8) 5.5 Ur Specific [place] (1.005-1.025) >= 1.030 H Urine Protein (Negative) mg/dL Negative Urine Ketones (Negative) mg/dL Negative Urine Blood (Negative) Negative Urine Nitrite (Negative) Negative Urine Bilirubin (Negative) Negative Urine Urobilinogen (Up TO 0.2) EU/dL 0.2 Ur Leukocyte Esterase (Negative) Negative Urine Glucose (Negative) mg/dL Negative Sign Out Sign Out Data: Sign Out Comment: Sent in by urgent care to rule out diverticulitis by CT imaging. Patient appears well, nontoxic, no evidence of fever or leukocytosis. CT imaging pending Last updated by Blaine Poe PA at 11/13/21 23:20 Discharge Plan Disposition Patient Disposition: HOME Condition: Stable Discharge Details Clinical Impression: Acute diverticulitis, Pericardial effusion, Hiatal hernia Primary Care Provider: Apollo Gamez ED Provider: Ricci Call Home Meds and New Rx's Prescriptions: Continued mupirocin 2 % ointment 1 applic Topical BID 7 Days Qty: 22 1RF epinephrine [EpiPen 2-Behzad] 0.3 mg/0.3 mL auto-injector 0.3 mg IM as directed Qty: 1 3RF Rx Instructions: as directed for anaphylaxis multivitamin with iron [Daily Multiple Vitamins/Iron] tablet 1 tab PO DAILY tdqrdrar-xhd-ixcrs-zzo130-pvuq [Bttgda-Jgrfb-SEJ (with antiox)] 500-500-66.7 mg tablet 4 tab PO BID diphenhydramine HCl [Benadryl] 25 MG capsule 4 cap PO HS PRN Label Comments: 09/15/16 prn. si loratadine [Claritin] 10 MG tablet 1 tab PO BID Qty: 180 Label Comments: 09/15/16 prn. si omeprazole 40 mg capsule,delayed release(DR/EC) 40 mg PO DAILY Qty: 30 0RF acyclovir 400 mg tablet 400 mg PO TID PRN Qty: 30 1RF Rx Instructions: at the first sign of outbreak until lesion clear nystatin 100,000 unit/gram powder 1 applic TP TID PRN No Action amoxicillin-pot clavulanate 875-125 mg tablet 1 tab PO BID Qty: 19 0RF Discharge Instructions Instructions: Hiatal Hernia (ED), Diverticulitis (ED), Pericardial Effusion (ED) Additional Instructions: Please contact your primary care physician to arrange follow-up. Be sure to discuss results of today's visit. Please take full course of antibiotic as prescribed. Return to the ER immediately for any worsening or new concerning symptoms. Referrals: Apollo Gamez NP [Primary Care Provider] - Discharge Data Discharge Date/Time-TO BE ENTERED AT DEPARTURE: 11/14/21 00:33
[2021-11-14 00:32] VITALS: BP 124/71; PULSE 58; RESP 16; O2SAT 97
[2021-11-14] MEDS: Amoxicillin 875/Clav. 125 TAB PO (00:32)
== END 2021-11-14 00:33 | disposition home or self-care (01) ==
PROVIDERS: Physician Assistant; Emergency Provider Student in an Organized Health Care Education/Training Program; PCP Nurse Practitioner Family
DX: K57.92 Diverticulitis of intestine, part unspecified, without perforation or abscess without bleeding (principal); I30.9 Acute pericarditis, unspecified; K44.9 Diaphragmatic hernia without obstruction or gangrene
CPT/HCPCS: 80053; 99284; 74176; 81003; 83735; 85025; 99283

== ENCOUNTER 2022-04-23 08:38 | Outpatient (CLI) | payer OTHER, SELFPAY ==
[2022-04-23 13:06] LABS: ALT 33 U/L (14-59); AST 18 U/L (15-37); Albumin 3.5 g/dL (3.4-5.0); Alkaline Phosphatase 103 U/L (46-116); Anion Gap 6.1 mmol/L (3-11); BUN 20 mg/dL (7-18); Bilirubin, Total 0.5 mg/dL (0.2-1.0); CO2 28.9 mmol/L (21.0-32.0); CREATININE 0.8 mg/dL (0.55-1.02); Calcium 9.1 mg/dL (8.5-10.1); Chloride 104 mmol/L (98-107); Estimated GFR 84.82 (mL/min/1.73m2); Glucose 103 mg/dL (74-106); Sodium 139 mmol/L (136-145); TSH (W/Ref FT4) 3.39 uIU/mL (0.36-3.74); Total Protein 7.2 g/dL (6.4-8.2)
[2022-04-26 12:00] LABS: Lyme Ab w Rflx to Lyme Confirm Negative (Negative)
[2022-04-28 23:19] LABS: Anaplasma phagocytophilum Negative (Negative); B. miyamotoi PCR Negative (Negative); Babesia divergens/MO-1 Negative (Negative); Babesia duncani Negative (Negative); Babesia microti Negative (Negative); Ehrlichia chaffeensis Negative (Negative); Ehrlichia ewingii/canis Negative (Negative); Ehrlichia muris eauclairensis Negative (Negative)
== END 2022-04-23 08:39 | disposition home or self-care (01) ==
LOC: LOS 08:39
PROVIDERS: PCP Nurse Practitioner Family; Visit Provider Nurse Practitioner Family
DX: R79.89 Other specified abnormal findings of blood chemistry (principal); M25.59 Pain in other specified joint; R53.83 Other fatigue
CPT/HCPCS: 36415; 80053; 87798; 84443; 86618

== ENCOUNTER 2022-06-03 09:09 | Outpatient (CLI) | payer OTHER, SELFPAY ==
[2022-06-03 12:26] LABS: Abs Immature Grans 0.03 10^3/uL (0.0-0.06); Absolute Basophil Count 0.06 10^3/uL (0.0-0.2); Absolute Eosinophil Count 0.19 10^3/uL (0.0-0.7); Absolute Monocyte Count 0.46 10^3/uL (0.1-0.8); Absolute Neutrophil Count 3.13 10^3/uL (1.2-6.7); Basophils % 1.2; Eosinophils % 3.9; HCT 45.4 % (36.0-46.0); Immature Grans % 0.6; Lymphocytes % 20.5; MCH 30.6 pg (27.0-33.0); MCV 93 fL (80-95); MPV 11.1 fL (8.0-11.0); Monocytes % 9.4; Neutrophils % 64.4; Platelet Count 188 10^3/uL (130-400); RDW-SD 44.3 fL; WBC 4.87 10^3/uL (4.4-10.8)
[2022-06-03 13:07] LABS: Ferritin 101 ng/mL (8-252); Vitamin B12 733 pg/mL (193-986)
[2022-06-03 14:00] LABS: Iron 137 ug/dL (50-170); Total Iron Binding Capacity 329 ug/dL (250-450)
[2022-06-04 08:46] LABS: Transferrin 270 mg/dL (201-352)
== END 2022-06-03 09:10 | disposition home or self-care (01) ==
LOC: LOS 09:10
PROVIDERS: PCP Nurse Practitioner Family; Referring Provider Nurse Practitioner Family; Visit Provider Nurse Practitioner Family
DX: R53.83 Other fatigue (principal)
CPT/HCPCS: 36415; 82607; 82728; 83540; 83550; 84466; 85025

== ENCOUNTER 2022-08-26 09:28 | Outpatient (REF) | payer OTHER, SELFPAY ==
--- NOTE | 2022-08-26 08:50 | PAPFT_PTH ---
PATIENT: Demetra Arora LOC: [facility] U#:[id number] AGE/SX: 61/F ROOM: RE08/26/[address]: Apollo Gamez NP : 1960 BED: DIS: 08/26/2022 SPEC #: [id number] RECD: 08/27/22 12:57 STATUS: CATHY RENik #: [id number] THIERNO: 08/26/22 08:[address]: Apollo Gamez DEPT: [facility] Cytology RECD BY: Iwona Mesa Tissues: 1 - CX/ENDOCX FOR PAP SMEARS Procedures: PAP THIN PREP/UVM Screening HPV DNA PROBE Comments: [id number]
== END 2022-08-26 09:29 | disposition home or self-care (01) ==
LOC: LBN 09:28
PROVIDERS: PCP Nurse Practitioner Family; Visit Provider Nurse Practitioner Family
DX: Z12.4 Encounter for screening for malignant neoplasm of cervix (principal); Z11.51 Encounter for screening for human papillomavirus (HPV)
CPT/HCPCS: 88142; 87624

== ENCOUNTER 2023-04-27 19:34 | Emergency (ER) | payer OTHER, SELFPAY ==
[2023-04-27 19:37] VITALS: BP 174/113; PULSE 82; RESP 18; TEMP 36.9; O2SAT 96
--- NOTE | 2023-04-27 19:45 | RT.EKG_ITS ---
APPROVED REPORT Exam: Resting ECG Reason for Exam: back pain Patient Location: E HR:72 bpm ECG Measurements Heart Rate 72 AXIS NE 173 P 22 QRSd 89 QRS 3 QT 416 T 35 QTc 455 Conclusion Sinus rhythm normal axis
[2023-04-27] MEDS: Lidocaine 5% Patch 1 PATCH TP (20:05)
[2023-04-27] MEDS: Acetaminophen 500 MG TAB 1000 MG PO (20:05)
[2023-04-27] MEDS: Methocarbamol 500 MG TAB 1000 MG PO (20:06)
[2023-04-27 20:13] VITALS: BP 130/82
[2023-04-27 21:20] VITALS: BP 132/62; PULSE 78; RESP 14; O2SAT 98
[2023-04-27] MEDS: Methocarbamol 750 MG TAB PO ×3 (21:20)
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
== END 2023-04-27 21:21 | disposition home or self-care (01) ==
PROVIDERS: Emergency Provider Emergency Medicine; PCP Nurse Practitioner Family
DX: M54.9 Dorsalgia, unspecified (principal); M62.830 Muscle spasm of back
CPT/HCPCS: 93005; 99283; 93010

== ENCOUNTER → 2023-04-29 09:52 | Outpatient (CLI) | payer OTHER, SELFPAY ==
--- NOTE | 2023-04-29 09:00 | DI.RAD_ITS ---
Exam(s) XR THORACIC SPINE COMPLETE EXAM: XR THORACIC SPINE COMPLETE CLINICAL HISTORY: Work related injury with significant pain, injury upper back, S29.9XXA. TECHNIQUE: 2D digital imaging was performed of the thoracic spine. Two views were obtained. AP and lateral views were obtained. COMPARISON: CR LUMBAR SPINE COMPLETE from 08/30/2014 FINDINGS: BONES: There is no fracture or destructive lesion. The cervical thoracic junction is not visualized o n the lateral view. DISKS:There is a mild right convex midthoracic curvature. Degenerative changes are seen throughout t he thoracic spine characterized by disc space narrowing and endplate osteophytes. SOFT TISSUE: There is an opacity in the right perihilar region on the AP view of the chest which is i ncompletely imaged. This appears concerning for a pulmonary mass or infiltrate. There also appears to be elevation of the right hemidiaphragm on the lateral view which may contribute to this finding. IMPRESSION: 1. No acute fracture or subluxation in the thoracic spine. 2. Degenerative changes present throughout the thoracic spine. 3. Incompletely imaged opacity in the right perihilar region. A dedicated chest x-ray is recommended , initially, with PA and lateral views for further evaluation. Unexpected findings DATA REPOSITORY: RADIATION DOSE DELIVERED:
== END ==
PROVIDERS: PCP Nurse Practitioner Family; Visit Provider Nurse Practitioner Family
DX: M51.34 Other intervertebral disc degeneration, thoracic region (principal)
CPT/HCPCS: 72072

== ENCOUNTER → 2023-05-10 16:22 | Outpatient (CLI) | payer OTHER, SELFPAY ==
--- NOTE | 2023-05-10 09:15 | DI.RAD_ITS ---
Exam(s) XR CHEST 2V PA LATERAL EXAM: XR CHEST 2V PA LATERAL CLINICAL HISTORY: Abn findings on DI of other specified body structures, Opacity, R93.89 TECHNIQUE: 2D digital imaging was performed. COMPARISON: CT CT THORAX CTA from 10/07/[address] ABDOMEN PELVIS WO from 11/13/2021 CR XR THORACIC SPINE COMPLETE from 04/29/2023 FINDINGS: There is a large hiatal hernia with bowel extending above the diaphragm. This was noted on prior est CT. HEART: Normal size. Aorta: Not dilated. PULMONARY VASCULATURE: Normal. LUNGS: Clear where visualized. PLEURAL SPACE: No pleural effusion or pneumothorax. BONE:Unremarkable for age. Soft tissues: Unremarkable. IMPRESSION: No acute abnormality. Large hiatal hernia containing bowel. Accounts for the densities seen on the recent thoracic spine plain films. DATA REPOSITORY: RADIATION DOSE DELIVERED:
== END ==
PROVIDERS: PCP Nurse Practitioner Family; Visit Provider Nurse Practitioner Family
DX: R93.89 Abnormal findings on diagnostic imaging of other specified body structures (principal); K44.9 Diaphragmatic hernia without obstruction or gangrene; Y99.0 Civilian activity done for income or pay
CPT/HCPCS: 71046

== ENCOUNTER → 2023-07-04 12:42 | Outpatient (CLI) | payer OTHER, SELFPAY ==
--- NOTE | 2023-07-04 10:45 | DI.US_ITS ---
Exam(s) US LOWER EXTREMITY VENOUS RT EXAM: US LOWER EXTREMITY VENOUS RT CLINICAL HISTORY: right foot pain, infection, postoperative L08.9 TECHNIQUE: Right lower extremity venous ultrasound performed using grayscale, color-flow, and spectr al Doppler analysis. COMPARISON: No exams were available for comparison FINDINGS: The right common femoral, femoral and popliteal veins demonstrate normal compressibility, augmentatio n, and color Doppler. The posterior tibial and peroneal veins are patent. The saphenofemoral junctio n is unremarkable. There is no evidence of a [place] cyst. The soft tissues are unremarkable. IMPRESSION: No evidence of a right lower extremity DVT. DATA REPOSITORY:
--- NOTE | 2023-07-04 10:45 | DI.US_ITS ---
Exam(s) US SOFT TISSUE EXTREMITY EXAM: US SOFT TISSUE EXTREMITY CLINICAL HISTORY: right foot infection. please evalaute for deep L08.9. TECHNIQUE: Ultrasound was performed using standard protocol. COMPARISON: No exams were available for comparison FINDINGS: Sonographic assessment utilizing grayscale and color Doppler imaging was performed and targeted to th e area of clinical concern. There is a subcutaneous fluid collection in the right lateral foot in the area of concern measuring 2 .4 x 0.2 x 1.0 cm. It is fairly well-circumscribed. There is mild heterogeneity and increased blood flow in the surrounding soft tissues. IMPRESSION: 1. 2.4 x 0.2 x 1.0 cm subcutaneous fluid collection corresponding to the area of concern. This may r epresent a small abscess. 2. There is mild heterogeneity and increased blood flow in the surrounding soft tissues. An infectio us or inflammatory process should be considered. DATA REPOSITORY:
--- NOTE | 2023-07-04 11:50 | DI.RAD_ITS ---
Exam(s) XR FOOT RT COMPLETE EXAM: XR FOOT RT COMPLETE CLINICAL HISTORY: foot infection, postoperative L08.9. TECHNIQUE: 2D digital imaging was performed of the right foot. Three images were obtained. AP, obl ique and lateral views were obtained. COMPARISON: CR RIGHT FOOT COMPLETE from 10/21/2010 FINDINGS: BONES: No acute fracture is present. No bony destructive lesion is seen. There is a spur at the plant ar surface of the calcaneus. Postsurgical changes of a 1st MTP joint fusion are noted. There also f usion seen at the calcaneocuboid joint in the talonavicular joint. There is a subtalar joint effusio n. The orthopedic hardware appears in good position. No suspicious lucencies are seen around the mantilla rdware. JOINTS: No dislocation present. Degenerative changes are seen in the foot particularly at the tarsome tatarsal joints. SOFT TISSUE: There is diffuse soft tissue swelling of the foot. No radiopaque foreign bodies are see n. IMPRESSION: 1. Diffuse soft tissue swelling of the foot. No radiopaque foreign bodies or subcutaneous gas is see n. 2. Postsurgical changes in the foot. 3. Degenerative changes seen predominantly at the tarsometatarsal joints. DATA REPOSITORY: RADIATION DOSE DELIVERED:
== END ==
PROVIDERS: PCP Nurse Practitioner Family; Visit Provider Physician Assistant
DX: M19.071 Primary osteoarthritis, right ankle and foot (principal); R22.41 Localized swelling, mass and lump, right lower limb
CPT/HCPCS: 76881; 73630; 93971

== ENCOUNTER → 2023-07-22 00:43 | Outpatient (CLI) | payer OTHER, SELFPAY ==
--- NOTE | 2023-07-22 07:15 | DI.MRI_ITS ---
Exam(s) MR THORACIC SPINE WO EXAM: MR THORACIC SPINE WO CLINICAL HISTORY: pain,thoracic myofascial strain,S29.019a. TECHNIQUE: Multiplanar multisequence MRI of the Thoracic spine was performed. COMPARISON: CR XR THORACIC SPINE COMPLETE from 04/29/2023 FINDINGS: Bones: The vertebral body heights are well maintained. Alignment is satisfactory. There are endplate osteophytes and degenerative endplate signal changes seen, predominantly in the mid and lower thoraci c spine. Cord: The thoracic cord is normal size and signal intensity. No intrinsic cord lesion is present. Discs: No disc herniation or bulge is present. No central spinal canal or neural foraminal stenosis i s seen in the thoracic spine. Soft tissues: Normal. IMPRESSION: 1. Degenerative changes seen in the thoracic spine. 2. No focal disc herniation, central spinal canal or neural foraminal stenosis. 3. Normal appearance of the spinal cord. DATA REPOSITORY:
== END ==
PROVIDERS: PCP Nurse Practitioner Family; Visit Provider Nurse Practitioner Family
DX: S29.019A Strain of muscle and tendon of unspecified wall of thorax, initial encounter (principal); X58.XXXA Exposure to other specified factors, initial encounter
CPT/HCPCS: 72146

== ENCOUNTER → 2023-08-09 01:08 | Outpatient (CLI) | payer OTHER, SELFPAY ==
--- NOTE | 2023-08-09 11:30 | DI.MRI_ITS ---
Exam(s) MR UPPER JOINT LT WO EXAM: MR UPPER JOINT LT WO CLINICAL HISTORY: persistant pain, decrease in motion,impingement syndrome,m75.42. TECHNIQUE: Multiplanar multisequence MRI was performed. COMPARISON: There are no priors for comparison. FINDINGS: BONES: There is no fracture or contusion pattern. JOINTS: There are mild degenerative changes seen at the acromioclavicular joint. There are mild dege nerative changes seen at the glenohumeral joint. Cartilage thinning and osteophytes are present. TENDONS: Supraspinatus: There is tendinosis of the supraspinatus tendon. There is a partial intrasubstance te ar of the supraspinatus tendon at its insertion site. Infraspinatus: Tendinosis of the infraspinatus tendon is present. There is a focus of hyperintense s ignal seen in the infraspinatus tendon at its insertion site consistent with a partial tear. Subscapularis: Unremarkable. Teres Minor: Unremarkable. Biceps and [place]: There is tendinosis of the long head of the biceps tendon. MUSCLES: Unremarkable. GLENOID LABRUM: There is degeneration of the superior labrum. SOFT TISSUES: Unremarkable. LIGAMENTS: Unremarkable. OTHER: Subacromial and subdeltoid bursae are unremarkable. IMPRESSION: 1. Partial tears involving the infraspinatus and supraspinatus tendons. 2. Tendinosis of the supraspinatus, infraspinatus and long head of the biceps tendon. 3. Degeneration of the superior labrum. 4. Degenerative arthritis involving the acromioclavicular joint and the glenohumeral joint. DATA REPOSITORY:
== END ==
PROVIDERS: PCP Nurse Practitioner Family; Visit Provider Nurse Practitioner Family
DX: M75.111 Incomplete rotator cuff tear or rupture of right shoulder, not specified as traumatic (principal)
CPT/HCPCS: 73221

== ENCOUNTER 2023-09-07 15:39 | Outpatient (CLI) | payer OTHER, SELFPAY ==
--- NOTE | 2023-09-07 08:45 | DI.RAD_ITS ---
Exam(s) XR SHOULDER LT COMPLETE 2+V EXAM: XR SHOULDER LT COMPLETE 2+V CLINICAL HISTORY: LEFT SHOULDER PAIN. TECHNIQUE: 2D digital imaging was performed of the left shoulder. Two images were obtained. Grashe y and axillary views were obtained. COMPARISON: No priors for comparison. FINDINGS: BONES: No acute fracture is present. No bony destructive lesion is seen. JOINTS: No dislocation present. There are mild degenerative changes seen at the glenohumeral joint wi th osteophyte seen inferiorly. The acromioclavicular joint is well maintained. SOFT TISSUE: The visualized lungs are clear. IMPRESSION: Mild degenerative changes seen at the glenohumeral joint. DATA REPOSITORY: RADIATION DOSE DELIVERED:
== END 2023-09-07 15:40 | disposition home or self-care (01) ==
LOC: DIORS 15:40
PROVIDERS: PCP Nurse Practitioner Family; Visit Provider Student in an Organized Health Care Education/Training Program
DX: M19.012 Primary osteoarthritis, left shoulder (principal)
CPT/HCPCS: 73030

== ENCOUNTER 2023-09-13 04:47 | Outpatient (CLI) | payer OTHER, SELFPAY ==
[2023-09-13 13:46] LABS: Abs Immature Grans 0.02 10^3/uL (0.0-0.06); Absolute Basophil Count 0.03 10^3/uL (0.0-0.2); Absolute Eosinophil Count 0.17 10^3/uL (0.0-0.7); Absolute Lymphocyte Count 1.27 10^3/uL (1.2-3.4); Absolute Monocyte Count 0.43 10^3/uL (0.1-0.8); Absolute Neutrophil Count 4.42 10^3/uL (1.2-6.7); Basophils % 0.5; Eosinophils % 2.7; HCT 44.2 % (36.0-46.0); HGB 14.3 g/dL (11.2-15.7); Immature Grans % 0.3; MCH 28.9 pg (27.0-33.0); MCHC 32.4 % (32.0-36.0); MCV 90 fL (80-95); MPV 10.1 fL (8.0-11.0); Monocytes % 6.8; Neutrophils % 69.7; Platelet Count 214 10^3/uL (130-400); RBC 4.94 10^6/uL (3.93-5.22); RDW 13.2 % (11.7-14.6); RDW-SD 43.1 fL; WBC 6.34 10^3/uL (4.4-10.8)
[2023-09-13 14:07] LABS: ESR 10 mm/hr (0-30); Hemoglobin A1C 5.7 % (<5.7)
[2023-09-13 14:21] LABS: Calculated LDL 96 mg/dL (<100); Cholesterol 191 mg/dL (<200); HDL Cholesterol 66 mg/dL (40-60); Triglyceride 147 mg/dL (<150)
[2023-09-13 14:31] LABS: C-Reactive Protein 0.84 mg/dL (<or=0.5)
== END 2023-09-13 04:48 | disposition home or self-care (01) ==
LOC: LBO 04:48
PROVIDERS: PCP Nurse Practitioner Family; Visit Provider Student in an Organized Health Care Education/Training Program
DX: Z13.220 Encounter for screening for lipoid disorders (principal); Z13.1 Encounter for screening for diabetes mellitus; G89.4 Chronic pain syndrome
CPT/HCPCS: 36415; 80061; 85652; 83036; 85025; 86140

== ENCOUNTER → 2023-10-19 03:33 | Outpatient (CLI) | payer OTHER, SELFPAY ==
--- NOTE | 2023-10-19 08:30 | DI.MAMMO_ITS ---
Exam(s) MAMMO SCREENING EXAM: MAMMO SCREENING CLINICAL HISTORY: screening, Z12.39 TECHNIQUE: Bilateral full field digital CC and MLO mammographic images were obtained with 3D tomosyn thesis and utilizing computer aided detection (CAD). COMPARISON: Available for comparison. FINDINGS: Masses/Architectural Distortion: None seen. Microcalcifications: No suspicious pleomorphic-type are seen. Skin Thickening/Nipple Retraction: None. IMPRESSION: 1. No significant interval change with no specific features of malignancy noted. 2. Unless there is more urgent need, screening mammography is recommended, as per [employer] guidelines. BI-RADS Category 1 - Negative Breast Density - Category B - Scattered areas of fibroglandular density Breast density category C or D implies that the patient has dense breast tissue. Dense breast tissue is very common and is not abnormal but dense breast tissue can make it harder to find cancer on a ma mmogram. Also, dense breast tissue may increase their breast cancer risk. This information about the result of the mammogram report was provided to the patient to raise their awareness. Use this report when you speak with the patient about their risks for breast cancer, which includes their family hist ory. At that time, you may recommend for more screening tests (Ultrasound or MRI) as they might be us eful based on their risk. A negative radiographic report should not delay biopsy if a dominant or clinically suspicious mass is present. Up to ten percent of cancers are not identified on mammography. A negative report may reinforce clinical impression. Adenosis and dense breasts may obscure an underlying neoplasm. False positive reports average 6 to 10%. Patient will receive a letter notifying them of these results.
== END ==
PROVIDERS: PCP Nurse Practitioner Family; Visit Provider Nurse Practitioner Family
DX: Z12.31 Encounter for screening mammogram for malignant neoplasm of breast (principal)
CPT/HCPCS: 77063; 77067

== ENCOUNTER 2024-10-11 00:36 | Outpatient (CLI) | payer OTHER, SELFPAY ==
--- NOTE | 2024-10-11 06:15 | DI.CT_ITS ---
Exam(s) CT ABDOMEN PELVIS W EXAM: CT ABDOMEN PELVIS W CLINICAL HISTORY: Worsening symptoms with breathing,diaphragmatic hernia,k44.9. TECHNIQUE: Imaging Protocol: Axial computed tomography images with coronal and sagittal reformatted images were created and reviewed CONTRAST MATERIAL: Intravenous: Omnipaque-350 100cc Oral: Yes. Oral contrast was also administered for bowel opacification. COMPARISON: CT CT ABDOMEN PELVIS WO from 11/13/2021 FINDINGS: VISUALIZED LUNG BASES: No nodules nor pleural effusions evident. ABDOMEN: Again noted is a large central-right sided diaphragmatic hiatal hernia containing stomach and transve rse colon as well as mesenteric fat. This hernia measures 21 cm wide by 16 cm craniocaudal by 17 cm AP; slightly larger than the previous CT scan of November 2021. There is adjacent atelectasis in the rig ht lung base. Visualized left lung base is clear.. LIVER: There are no focal hepatic lesions evident. No dilated intrahepatic ducts. GALLBLADDER/BILIARY: No obvious gallbladder pathology. CBD is not dilated. PANCREAS: No evidence of pancreatic mass nor dilatation of the pancreatic duct. SPLEEN: Spleen size is normal. There is a cyst again noted in the inferior aspect of the spleen whic h measures 3.3 by 2.8 cm, similar to previous. No new splenic findings. Splenic and portal veins ar e patent. ADRENALS: There are no significant adrenal masses. KIDNEYS:No cysts evident. No solid renal masses. No calculi nor hydronephrosis.. ABDOMINAL AORTA: Abdominal aorta is not enlarged. LYMPH NODES:There is no retroperitoneal nor paraaortic adenopathy. ABDOMINAL WALL: No evidence of significant anterior abdominal wall hernia. Bilateral small fat only containing inguinal hernias are noted GI: There is no evidence of bowel obstruction, free air, nor abscess. The above described large diap hragmatic hernia contains stomach and large bowel but no small bowel loops. PELVIS: GI: The appendix is retrocecal and neither the appendix nor the cecum are in the hernia sac. Instead they are in the right upper quadrant medial to the liver.There is sigmoid diverticulosis. No eviden ce of obvious acute diverticulitis at this time. LYMPH NODES: There is no intrapelvic nor inguinal adenopathy. REPRODUCTIVE: Uterus and adnexal regions unremarkable. No free fluid in the pelvis. URINARY BLADDER: No calculi nor obvious masses evident OSSEOUS: No fractures and no significant osseous lesions. Stimulator device again noted posteriorly IMPRESSION: 1. Again noted is a very large right-sided diaphragmatic/hiatal hernia located predominately to the r ight of dover and containing a large part of the transverse colon including the a hepatic flexure (b ut not the cecum and appendix). It also contains the stomach. Does not contain small bowel loops. There is no bowel obstruction. There is atelectasis in the adjacent right lung base. 2. Sigmoid diverticulosis without evidence of acute diverticulitis at this time. Also no evidence of appendicitis. 3. Bilateral small fat only containing inguinal hernias are again noted. 4. Stable cyst in the inferior aspect of the spleen. RADIATION DOSE DELIVERED: 2,156.11mGy.cm Total DLP DATA REPOSITORY: All CT scans at this facility are submitted to the National Radiology Data Registry (NRDR) Dose Index Registry (DIR) with the [employer] (A[employer]). RADIATION OPTIMIZATION: All CT scans at this facility use at least one of these dose optimization te chniques: automated exposure control; mA and/or kV adjustment per patient size (includes targeted exa ms where dose is matched to clinical indication); or iterative reconstruction.
[2024-10-11] MEDS: Barium Sulfate 2% W/V-Creamy Vanilla Smoothie 450 ML BTL PO ×2 (07:47→07:48)
[2024-10-11 07:52] LABS: CREATININE 0.8 mg/dL (0.55-1.02); Estimated GFR 83.78 (mL/min/1.73m2)
[2024-10-11] MEDS: Normal Saline - Diluent 50 ML VIAL IJ (09:07)
[2024-10-11] MEDS: Omnipaque 350 MG/ML 500 ML BTL-Imaging package 75 ML IJ (09:08)
== END 2024-10-11 00:56 ==
LOC: DI 00:36
PROVIDERS: PCP Nurse Practitioner Family; Visit Provider Nurse Practitioner Family
DX: K44.9 Diaphragmatic hernia without obstruction or gangrene (principal); K57.30 Diverticulosis of large intestine without perforation or abscess without bleeding
CPT/HCPCS: 74177; 82565

== ENCOUNTER 2025-01-31 14:22 | Outpatient (CLI) | payer OTHER, SELFPAY ==
--- NOTE | 2025-01-31 11:15 | DI.RAD_ITS ---
Exam(s) XR LUMBAR SPINE AP, LAT EXAM: XR LUMBAR SPINE AP, LAT CLINICAL HISTORY: check for broken leads stimulator,pre mri clearance, low back pain,m54.5. TECHNIQUE: 2D digital imaging was performed. COMPARISON: CT CT ABDOMEN PELVIS W from 10/11/2024 FINDINGS: 3 views No evidence of fracture but there is again noted significant anterolisthesis of L4 upon L5 related to facet arthropathy at this level and there is also advanced disc space narrowing at the L4-5 disc space. Are no pars defects at L5 level. There is moderate-advanced disc space narrowing at L5-S1 level again noted with vacuum phenomena M seen within the disc space but no listhesis at this level. There is a neurostimulator again noted posteriorly at L5 level. There are 2 associated intact electrodes. The distal tip of the electrodes are associated with the posterior aspect of the L5-S1 facet joints. Sacroiliac joints appear age-appropriate. No osseous lesions in pelvis. No significant scoliosis IMPRESSION: Anterolisthesis of L4 upon L5 related to facet arthropathy, similar to 10/11/2024 CT scan. Posterior stimulator with 2 intact electrode leads, both of which are applied to the posterior aspect of the L5-S1 facet joints. DATA REPOSITORY: RADIATION DOSE DELIVERED:
== END 2025-01-31 14:42 ==
LOC: DI 14:25
PROVIDERS: PCP Nurse Practitioner Family; Visit Provider Nurse Practitioner Family
DX: Z96.89 Presence of other specified functional implants (principal); M43.16 Spondylolisthesis, lumbar region
CPT/HCPCS: 72100

== ENCOUNTER 2025-02-01 15:07 | Outpatient (CLI) | payer OTHER, SELFPAY ==
--- NOTE | 2025-02-01 16:05 | DI.MRI_ITS ---
Exam(s) MR LOWER EXTREMITY LT WO EXAM: MR LOWER EXTREMITY LT WO CLINICAL HISTORY: Failing PT. PT requests imaging [id number] STRAIN HAMSTRING TECHNIQUE: Multiplanar multisequence MRI was performed without intravenous contrast. COMPARISON: No exams were available for comparison FINDINGS: The examination is limited due to patient motion artifact. BONES/JOINTS: No fracture or contusion pattern. No bone lesions identified. MUSCULOTENDINOUS STRUCTURES: There is a partial tear of the left hamstring tendon. No muscular fatty atrophy. There is hyperintense signal seen at the insertion sites of the gluteus medius and gluteus minimus tendon. There is mild hyperintense signal seen in the soft tissues adjacent to the left greater trochanter. SOFT TISSUES: Note is made of diverticulosis in the colon. OTHER FINDINGS: None. IMPRESSION: 1. Partial tear of the left hamstring tendon at its insertion site. 2. Left gluteus minimus and medius partial tear/tendinosis. DATA REPOSITORY:
== END 2025-02-01 15:27 ==
LOC: DI 15:07
PROVIDERS: PCP Nurse Practitioner Family; Visit Provider Nurse Practitioner Family
DX: S76.319A Strain of muscle, fascia and tendon of the posterior muscle group at thigh level, unspecified thigh, initial encounter (principal); X58.XXXA Exposure to other specified factors, initial encounter
CPT/HCPCS: 73718

== ENCOUNTER 2025-03-06 13:17 | Outpatient (CLI) | payer OTHER, SELFPAY ==
--- NOTE | 2025-03-06 10:45 | DI.RAD_ITS ---
Exam(s) XR HIP LT COMPLETE AP PELVIS EXAM: XR HIP LT COMPLETE AP PELVIS CLINICAL HISTORY: LEFT HAMSTRING INJURY. TECHNIQUE: 2D digital imaging was performed. Three views. COMPARISON: CR RT HIP COMPLETE AP PELVIS from 08/13/2016 FINDINGS: BONES: No acute fracture is present. No bony destructive lesion is seen. JOINTS: No dislocation present. The SI joints and pubic symphysis are intact. No significant degenerative changes. SOFT TISSUE: Normal. IMPRESSION: Unremarkable radiographs of the left hip. DATA REPOSITORY: RADIATION DOSE DELIVERED:
== END 2025-03-06 13:18 | disposition home or self-care (01) ==
LOC: DIORS 13:17
PROVIDERS: PCP Nurse Practitioner Family; Visit Provider Student in an Organized Health Care Education/Training Program
DX: S76.302A Unspecified injury of muscle, fascia and tendon of the posterior muscle group at thigh level, left thigh, initial encounter (principal)
CPT/HCPCS: 73502

== ENCOUNTER 2025-03-17 08:17 | Emergency (ER) | payer OTHER, SELFPAY ==
[2025-03-17 08:20] VITALS: BP 133/67; PULSE 84; RESP 15; TEMP 36.8; O2SAT 96
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
[2025-03-17] MEDS: Acetaminophen 500 MG TAB 1000 MG PO (09:02)
[2025-03-17 09:13] VITALS: BP 130/67; PULSE 74; RESP 20; O2SAT 96
== END 2025-03-17 09:14 | disposition home or self-care (01) ==
PROVIDERS: Emergency Provider Emergency Medicine; PCP Nurse Practitioner Family
DX: M54.50 Low back pain, unspecified (principal)
CPT/HCPCS: 99283 ×2